=== PATIENT | female | born 1935 | race Caucasian/White ===

== ENCOUNTER → 2023-08-29 13:16 | Outpatient (REF) | payer MEDICARE, SELFPAY ==
[2023-08-29 16:52] LABS: ALT (SGPT) 21 U/L (0-35); AST (SGOT) 31 U/L (14-36); Albumin 3.6 g/dl (3.5-5.0); Alkaline Phosphatase 49 U/L (38-126); Blood Urea Nitrogen 28 mg/dl (7-17); Calcium 9.5 mg/dl (8.4-10.2); Carbon Dioxide 20 mmol/L (22-30); Chloride 110 mmol/L (98-107); Glucose 86 mg/dl (70-99); Potassium 3.9 mmol/L (3.5-5.1); Sodium 139 mmol/L (135-145); Total Bilirubin 1.2 mg/dl (0.2-1.3); eGFR 31.02
[2023-08-29 17:03] LABS: % Basophils 0.4 % (0-2); % Eosinophils 1.2 % (0-6); % Monocytes 12.1 % (1.7-9.3); % Neutrophils 52.3 % (42.2-75.2); Absolute Basophils 0.1 10^3/uL (0-0.2); Absolute Eosinophils 0.2 10^3/uL (0-0.7); Absolute Immature Granulocytes 0.1 10^3/uL (0-0.05); Absolute Lymphocytes 4.1 10^3/uL (1.2-3.4); Absolute Monocytes 1.5 10^3/uL (0.1-0.6); Absolute Neutrophils 6.6 10^3/uL (1.4-6.5); Hematocrit 41.1 % (37.0-47.0); Hemoglobin 13.2 g/dL (12.0-16.0); Mean Corp Hgb Conc. 32.1 g/dL (33.0-37.0); Mean Corpuscular Hgb 30.1 pg (27.0-31.0); Mean Corpuscular Volume 93.6 fL (81.0-99.0); Mean Platelet Volume 11.3 fL (7.4-10.4); Nucleated Red Blood Cells % 0 %; Platelet Count 220 10^3/uL (130-400); Red Blood Cell Count 4.39 10^6/uL (4.20-5.40); Red Cell Dist. Width 15.6 % (11.5-14.5); White Blood Cell Count 12.5 10^3/uL (4.8-10.8)
[2023-08-30 09:09] LABS: Glycohemoglobin (HgbA1c) 6.4 % (4.0-5.6)
== END ==
LOC: OLABPV 13:16
PROVIDERS: ATTENDING PHYSICIAN Nurse Practitioner Family; FAMILY PHYSICIAN Internal Medicine Geriatric Medicine
DX: I25.10 Atherosclerotic heart disease of native coronary artery without angina pectoris (principal); E78.2 Mixed hyperlipidemia; I10 Essential (primary) hypertension; I26.99 Other pulmonary embolism without acute cor pulmonale; Z95.5 Presence of coronary angioplasty implant and graft; I44.4 Left anterior fascicular block; Z79.899 Other long term (current) drug therapy
CPT/HCPCS: 36415; 80053; 83036; 85025

== ENCOUNTER 2023-11-06 23:06 | Emergency (ER) | payer MEDICARE, SELFPAY ==
[2023-11-06 23:13] VITALS: BP 164/90
[2023-11-07 01:38] VITALS: BMI 32.3
--- NOTE | 2023-11-07 02:04 | ED.GENMED ---
History of Present Illness
General
Chief Complaint: Skin Surface Trauma
Source: patient
Exam Limitations: none
Time Seen by Provider: 11/07/23 01:14
Nursing documentation reviewed up to this point in time: agreed with
History of Present Illness
History of Present Illness:
Patient is an 88-year-old female from [facility] presents to the ER with laceration to right lateral leg. She reports she was in the bathroom and accidentally cut her leg on a walker. She is on Eliquis. She denies any other injuries denies any
actual trauma fall. no head injury. She is unsure of her last tetanus.
Past History
Past History
ED Past Medical History: Asthma, CAD, HTN, Hypercholesterolemia, Hypothyroidism and Other (Factor V Leiden deficiency, PE, gout, chronic sinusitis, Vertigo, IBS)
ED Past Surgical History: Cardiac (Stent X 1), Gynecological (Ovarian cyst), Orthopedic (Back surgery) and Other (hemorrhoidectomy)
Social History
Tobacco: Non-smoker
Alcohol: Former
Drug: None
Personal:
Living: with family
Review of Systems
Review of Systems
Allergies reviewed?: Yes
All Other Systems: ROS reviewed and negative except as documented in HPI and ROS
Constitutional: Reports no symptoms
Musculoskeletal: Reports other (right leg laceration)
Skin: Reports other (laceration to right lower leg )
Neurological: Reports no symptoms
Psychiatric: Reports no symptoms
Phy Exam
General Physical Exam
General Presentation: well appearing
General age: appears stated age
General Skin: warm and dry
General Habitus: elderly
General Mental: alert
General Hydration: appears well hydrated
Neurological Exam
Neurological Exam: alert and oriented x3
Musculoskeletal Exam
Musculoskeletal Exam: other (rle with strong pulses + 3 cm partial thickness linear laceration to right lower leg )
Skin Exam
Skin Exam: normal color and warm/dry
Psychiatric Exam
Psychiatric Exam: normal mood/affect
Course
Orders/Labs/Results
Orders:
Orders
11/07/23 02:03
Tetanus/Diphth/Acelpertussis [Adacel] 0.5 ml IM .ONCE ONE
Vital Signs
Initial and Last Documented VS:
Initial Vital Signs
Temp Pulse Resp BP Pulse Ox
98 F 92 24 164/90 96
11/06/23 23:13 11/06/23 23:13 11/06/23 23:13 11/06/23 23:13 11/06/23 23:13
Last Documented Vital Signs
Temp Pulse Resp BP Pulse Ox
98 F 92 24 164/90 96
11/06/23 23:13 11/06/23 23:13 11/06/23 23:13 11/06/23 23:13 11/06/23 23:13
Procedures
Laceration Closure
Right Lower Leg:
Status of Wound: clean
Size of Wound in cm: 3
Description of Wound Edges: sharp
Preparation: cleaned with saline
Type of Closure: other (steri strips )
MDM/Problems Addressed
Differential Diagnosis Includes:
Not limited to leg laceration
MDM/Problems Addressed:
Patient is a 88-year-old female who cut her leg on a walker. Patient's wound was irrigated and additional steri strips applied to wound nonstick dressing with leo
Chronic conditions affecting care:
on Eliquis however no active bleeding here
*Pulse Oximetry
Patient hypoxic: no
*Critical Care Note
Total Time (30-74mins, 75-104mins- exclusive of procedures): Not Applicable
ED Attending Note
-
Portions of this chart may have been created with voice recognition software.� Occasional wrong word or��sound alike� substitutions may have occurred due to the inherent limitations of voice recognition software.
Discharge Plan
Departure
Patient Disposition: Home (Routine Discharge)
Date of Disposition: 11/07/23
Time of Disposition: 02:07
Patient with high blood pressure during this ER visit?: Yes
Condition: Fair
Covid-19: Not Applicable
Discharge Problem:
Laceration of leg
Instructions: Wound Care (DC), BLOOD PRESSURE
Prescriptions:
No Action
tramadol 50 MG tablet
50 mg PO Q6HPRN PRN (Reason: moderate or severe pain) Qty: 30 0RF
gabapentin 100 MG capsule
100 mg PO TID Qty: 90 0RF
acetaminophen [Tylenol Extra Strength] 500 MG tablet
1,000 mg PO TIDPRN PRN (Reason: mild pain) Qty: 100 0RF
rosuvastatin [Ezallor Sprinkle] 40 MG capsule, sprinkle
40 mg PO DAILY Qty: 90 0RF
cetirizine 10 MG tablet
10 mg PO DAILY Qty: 90 0RF
allopurinol 100 MG tablet
100 mg PO HS Qty: 90 0RF
levothyroxine 100 MCG tablet
100 mcg PO DAILY Qty: 90 0RF
fluticasone furoate-vilanterol [Breo Ellipta] 1 EACH blister with device
1 puff inhalation R DAILY Qty: 1 0RF
apixaban [Eliquis] 5 MG tablet
5 mg PO BID Qty: 180 0RF
ipratropium bromide 1 SPRAY spray,non-aerosol
2 spray intranasal BIDPRN PRN (Reason: ALLERGIES) Qty: 1 0RF
Referrals:
Lauri Chavez MD [Family Provider] -
Activity Restrictions/Additional Instructions:
Keep wound clean and dry for 24 hours after 24 hours you may lightly wash wound with soap and water and pat dry. Trim Steri-Strips as needed however they will fall off on their own. Please have your family doctor follow-up for wound check in the
next 2 days. Return if any signs of infection of increased pain swelling redness fever red streaking.
Interventions
Interventions:
*Risk Screen - Suicide Last Done: 11/06/23 23:13
*General Assessment Last Done: 11/07/23 01:38
*Neglect/Abuse Screening Last Done: 11/06/23 23:13
*ED COVID-19 Vaccine History Last Done: 11/07/23 01:38
ED-Skin Assessment Last Done: 11/07/23 01:38
Discharge Date and Time
Print Language: LAO
[2023-11-07] MEDS: ADACEL 0.5 ML IM (02:58)
[2023-11-07 03:15] VITALS: BP 152/88
== END 2023-11-07 03:18 | disposition home or self-care (01) ==
LOC: EMR 23:06
PROVIDERS: EMERGENCY PHYSICIAN Emergency Medicine; FAMILY PHYSICIAN Internal Medicine Geriatric Medicine
DX: S81.811A Laceration without foreign body, right lower leg, initial encounter (principal); W45.8XXA Other foreign body or object entering through skin, initial encounter; Z23 Encounter for immunization; J45.909 Unspecified asthma, uncomplicated; I25.10 Atherosclerotic heart disease of native coronary artery without angina pectoris; I10 Essential (primary) hypertension; E78.00 Pure hypercholesterolemia, unspecified; E03.9 Hypothyroidism, unspecified; D68.51 Activated protein C resistance; K58.9 Irritable bowel syndrome, unspecified; Z79.01 Long term (current) use of anticoagulants; Z95.5 Presence of coronary angioplasty implant and graft
CPT/HCPCS: 99282; 90471; 90715

== ENCOUNTER 2023-11-29 09:39 | Inpatient (IN) | payer MEDICARE, SELFPAY ==
[2023-11-29] VITALS (11 sets, daily range): BP systolic 109–186; BP diastolic 49–173; PULSE 68; O2SAT 94; BMI 32.9
[2023-11-29 02:56] LABS: % Basophils 0.4 % (0-2); % Eosinophils 0.9 % (0-6); % Immature Granulocytes 1.2 % (0-0.5); % Lymphocytes 24.1 % (20.5-51.1); % Monocytes 12.1 % (1.7-9.3); % Neutrophils 61.3 % (42.2-75.2); Absolute Basophils 0.1 10^3/uL (0-0.2); Absolute Eosinophils 0.1 10^3/uL (0-0.7); Absolute Immature Granulocytes 0.1 10^3/uL (0-0.05); Absolute Lymphocytes 2.9 10^3/uL (1.2-3.4); Absolute Monocytes 1.5 10^3/uL (0.1-0.6); Absolute Neutrophils 7.4 10^3/uL (1.4-6.5); Hematocrit 36.8 % (37.0-47.0); Hemoglobin 12.2 g/dL (12.0-16.0); Mean Corp Hgb Conc. 33.2 g/dL (33.0-37.0); Mean Corpuscular Hgb 30.7 pg (27.0-31.0); Mean Corpuscular Volume 92.5 fL (81.0-99.0); Mean Platelet Volume 10.3 fL (7.4-10.4); Nucleated Red Blood Cells % 0 %; Platelet Count 198 10^3/uL (130-400); Red Blood Cell Count 3.98 10^6/uL (4.20-5.40); White Blood Cell Count 12.1 10^3/uL (4.8-10.8)
[2023-11-29 03:16] LABS: INR 1.05; PT 13.7 Sec (11.4-14.6)
[2023-11-29 03:17] LABS: APTT 23.2 Sec (23.4-35.0)
[2023-11-29 03:20] LABS: ALT (SGPT) 23 U/L (0-35); AST (SGOT) 25 U/L (14-36); Albumin 3.5 g/dl (3.5-5.0); Alkaline Phosphatase 55 U/L (38-126); Blood Urea Nitrogen 49 mg/dl (7-17); Carbon Dioxide 26 mmol/L (22-30); Chloride 109 mmol/L (98-107); Estimated Creatinine Clearance 22 ml/min; Glucose 107 mg/dl (70-99); Potassium 4.1 mmol/L (3.5-5.1); Sodium 142 mmol/L (135-145); Total Bilirubin 0.7 mg/dl (0.2-1.3); Total Protein 5.7 g/dl (6.3-8.2); eGFR 25.24
[2023-11-29 03:23] LABS: NT-proBNP 643 pg/ml; Troponin I 0.035 ng/ml
--- NOTE | 2023-11-29 03:46 | ED.GENMED ---
History of Present Illness
General
Chief Complaint: Swelling
Source: patient and ambulance crew
Exam Limitations: none
Nursing documentation reviewed up to this point in time: agreed with
History of Present Illness
History of Present Illness:
Pleasant 88-year-old female presents with increased leg swelling and pain. Patient uses a cane to ambulate. She states that this evening she banged her left connor and developed some bruising and swelling. She went to bed and upon awakening to use
the restroom, she felt increased pain so she called 911. Patient denies chest pain or shortness of breath. Patient is on Eliquis for factor V Leiden
Past History
Past History
ED Past Medical History: Asthma, CAD, HTN, Hypercholesterolemia, Hypothyroidism and Other (Factor V Leiden deficiency, PE, gout, chronic sinusitis, Vertigo, IBS)
ED Past Surgical History: Cardiac (Stent X 1), Gynecological (Ovarian cyst), Orthopedic (Back surgery) and Other (hemorrhoidectomy)
Social History
Tobacco: Non-smoker
Alcohol: Former
Drug: None
Personal:
Living: with family
Review of Systems
Review of Systems
Allergies reviewed?: Yes
Other source history: ambulance crew
All Other Systems: ROS reviewed and negative except as documented in HPI and ROS
Hematologic/Lymphatic: Reports bruising
Psychiatric: Reports anxiety
Phy Exam
General Physical Exam
General Presentation: well appearing and mild distress
General age: appears stated age
General Skin: warm and dry
General Habitus: normal
General Mental: alert and anxious
General Hydration: appears well hydrated
ENT Exam
ENT Exam: EOMI, pharynx normal, neck supple and normocephalic
Eye Exam
Eye Exam: PERRL, cornea clear and conjunctiva normal
Cardiovascular Exam
Cardiovascular Exam: regular rate/rhythm, no edema, no murmur and normal peripheral pulses
Pulmonary Exam
Pulmonary Exam: lungs clear, no respiratory distress, no rales, no crackles, no rhonchi, no stridor, no wheezing and no cough
Gastrointestinal Exam
Gastrointestinal Exam: normal bowel sounds, non tender, soft, no organomegaly, no pulsatile mass and non distended
Neurological Exam
Neurological Exam: alert, oriented x3, no motor deficits and speech normal
Musculoskeletal Exam
Musculoskeletal Exam: full ROM and no edema
Skin Exam
Skin Exam: normal color, warm/dry, no rash and no petechia
Psychiatric Exam
Psychiatric Exam: normal mood/affect
Scores
Heart Failure Risk
Heart Failure Risk Score: Yes
History of Stroke or TIA: No
History of intubation for respiratory distress: No
Heart rate on ED arrival >/= 110: No
SaO2 <90% on arrival on room air: No
HR >/=110 during 3min walk test (or too ill to perform test): No
ECG has acute ischemic changes: No
Urea >/=12mmol/L (BUN 33.6mg/dL): Yes
Serum CO2>/=35mmol/L: No
Troponin I or T elevated to MA Level (0.4mg/dL): No
NT-proBNP >/=5,000ng/L (5,000pg/ml): No
HF Risk Score: 1
Admission Status: MEDIUM RISK 5.1% Consider observation or discharge to home with homecare & f/u visit to PCP/S[employer] [facility], or SNF for treatment
Course
Orders/Labs/Results
Orders:
Orders
11/29/23 02:38
US Periph Venous LOWER Ext Nash Urgent
Comment:
Reason For Exam: swelling
11/29/23 02:48
Complete Blood Count/With Diff Urgent
Comprehensive Metabolic Panel Urgent
NT-proBNP Urgent
PTT Urgent
Prothrombin Time Urgent
Troponin I Urgent
11/29/23 04:22
CR Chest - 2 Views Urgent
Comment:
Reason For Exam: swelling
11/29/23 04:46
Furosemide [Lasix] 40 mg IV NOW STA
Abnormal Lab Results
11/29/23
02:48
WBC 12.1 H 10^3/uL
(4.8-10.8)
RBC 3.98 L 10^6/uL
(4.20-5.40)
Hct 36.8 L %
(37.0-47.0)
RDW 15.0 H %
(11.5-14.5)
Abs Immat Gran (auto) 0.1 H 10^3/uL
(0-0.05)
Absolute Neuts (auto) 7.4 H 10^3/uL
(1.4-6.5)
Absolute Monos (auto) 1.5 H 10^3/uL
(0.1-0.6)
Immature Gran % 1.2 H %
(0-0.5)
Monocytes % 12.1 H %
(1.7-9.3)
APTT 23.2 L Sec
(23.4-35.0)
Chloride 109 H mmol/L
(98-107)
BUN 49 H mg/dl
(7-17)
Creatinine 1.9 H mg/dL
(0.6-1.0)
Glucose 107 H mg/dl
(70-99)
Troponin I 0.035 H* ng/ml
Total Protein 5.7 L g/dl
(6.3-8.2)
11/29/23 02:48
11/29/23 02:48
Vital Signs
Initial and Last Documented VS:
Initial Vital Signs
Temp Pulse Resp BP Pulse Ox
97.9 F 86 18 165/81 97
11/29/23 02:31 11/29/23 02:31 11/29/23 02:31 11/29/23 02:31 11/29/23 02:31
Last Documented Vital Signs
Temp Pulse Resp BP Pulse Ox
97.9 F 67 16 146/63 96
11/29/23 02:31 11/29/23 04:30 11/29/23 04:30 11/29/23 04:00 11/29/23 04:30
*Critical Care Note
Total Time (30-74mins, 75-104mins- exclusive of procedures): Not Applicable
Update Note
Update Note:
Ultrasound of the legs is negative for DVT
ED Attending Note
-
Portions of this chart may have been created with voice recognition software.� Occasional wrong word or��sound alike� substitutions may have occurred due to the inherent limitations of voice recognition software.
Discharge Plan
Departure
Patient Disposition: Admit
Date of Disposition: 11/29/23
Time of Disposition: 05:08
Admit to: Telemetry
Presentation/result/management discussed w/ accepting MD/DO: Hospitalist
Condition: Fair
Discharge Problem:
Factor V Leiden, Fluid overload, Leg edema, Weakness
Prescriptions:
No Action
tramadol 50 MG tablet
50 mg PO Q6HPRN PRN (Reason: moderate or severe pain) Qty: 30 0RF
gabapentin 100 MG capsule
100 mg PO TID Qty: 90 0RF
acetaminophen [Tylenol Extra Strength] 500 MG tablet
1,000 mg PO TIDPRN PRN (Reason: mild pain) Qty: 100 0RF
rosuvastatin [Ezallor Sprinkle] 40 MG capsule, sprinkle
40 mg PO DAILY Qty: 90 0RF
cetirizine 10 MG tablet
10 mg PO DAILY Qty: 90 0RF
allopurinol 100 MG tablet
100 mg PO HS Qty: 90 0RF
levothyroxine 100 MCG tablet
100 mcg PO DAILY Qty: 90 0RF
fluticasone furoate-vilanterol [Breo Ellipta] 1 EACH blister with device
1 puff inhalation R DAILY Qty: 1 0RF
apixaban [Eliquis] 5 MG tablet
5 mg PO BID Qty: 180 0RF
ipratropium bromide 1 SPRAY spray,non-aerosol
2 spray intranasal BIDPRN PRN (Reason: ALLERGIES) Qty: 1 0RF
Referrals:
Lauri Chavez MD [Family Provider] -
Interventions
Interventions:
*Risk Screen - Suicide Last Done: 11/29/23 02:31
*General Assessment Last Done: 11/29/23 02:31
*Neglect/Abuse Screening Last Done: 11/29/23 02:31
*ED COVID-19 Vaccine History Last Done: 11/29/23 02:31
ED- Cardiac Assessment Last Done: 11/29/23 02:36
ED- Pulmonary Assessment Last Done: 11/29/23 02:36
ED-Skin Assessment Last Done: 11/29/23 02:36
Discharge Date and Time
Print Language: MALAY
[2023-11-29] MEDS: LASIX 40 MG IV ×2 (04:49→08:26)
--- NOTE | 2023-11-29 05:15 | HPS.HSE ---
Family Physician
-
Family Physician: Lauri Chavez
Chief Complaint
-
bilateral lower extremity swelling
History of Present Illness
Patient is an 88-year-old female with past medical history significant for hypertension, CATRACHO not on CPAP, PE on anticoagulation, factor V Leiden, lumbar degenerative disc disease status post L3-S1 interbody fusion, and hypothyroidism who presents to
the Emergency Department with worsening bilateral lower extremity swelling.
Patient reported that she had developed swelling initially in the right lower extremity starting about 4 weeks ago. This initially occurred in the setting of injury/bruising to that extremity. That remained persistent and slightly worsened over
the last month. In the last 1 week she started developing swelling in the right lower extremity. Today the patient reported that she was walking around the house when she injured left connor. When she sweats of the mirror she noticed significant
swelling of her feet and ankles. She also noticed the bruising and she called EMS.
Patient has of denies any recent orthopnea PND or shortness of breath. She denies dyspnea exertion. She denies having any chest pain. She been compliant with her Eliquis. Patient reports that antihypertensives were changed recently due to
worsening renal function.
In ED she was hemodynamically stable. Xray shows increased interstitial markings. Trop 0.03. BNP 643. CBC is unremarkable. Chemistries similar to prior. LE U/S negative for DVT.
Medical History
Past Medical History
Past Medical History: Reports HTN, Hypercholesterolemia and Hypothyroidism
Additional Past Medical History:
CKD
PE
Factor V leiden
Past Surgical History: Reports Orthopedic
Social History
Tobacco: Non-smoker
Alcohol: None
Drug: None
Personal: Single
Living: Assisted Living
Employment: Retired
Family History
Family History: Not pertinent
Allergies / Home Medications
Allergies reflects when Allergies were last updated in [employer].
Home Medications with original date entered in [employer]
Allergy/Medication List:
Allergies
Allergy/AdvReac Type Severity Reaction Status Date / Time
codeine Allergy Unknown Unknown Verified 11/29/23 02:31
alcohol Allergy hx of Verified 11/29/23 02:31
addiction
Sulfa (Sulfonamide Allergy Vomiting Verified 11/29/23 02:31
Antibiotics)
environmental Allergy sneezing, Uncoded 11/29/23 02:31
itching,
nasal
swelling,
watery
eyes,
headaache
narcotics Allergy Pharmacy Uncoded 11/29/23 02:31
to Review
Home Medications
allopurinol 100 mg tablet 100 mg PO HS Gout #90 tabs 07/15/20
apixaban 5 mg tablet (Eliquis) 5 mg PO BID #180 tabs 07/15/20
cetirizine 10 mg tablet 10 mg PO DAILY Allergies #90 tabs 07/15/20
fluticasone furoate 200 mcg-vilanterol 25 mcg/dose inhalation powder (Breo Ellipta) 1 puff inhalation R DAILY Lung/breathing issues ##1 07/15/20
gabapentin 100 mg capsule 100 mg PO TID #90 caps 07/15/20
levothyroxine 100 mcg tablet 100 mcg PO DAILY Thyroid #90 tabs 07/15/20
rosuvastatin 40 mg sprinkle capsule (Ezallor Sprinkle) 40 mg PO DAILY ##90 07/15/20
tramadol 50 mg tablet 50 mg PO Q6HPRN PRN moderate or severe pain #30 tabs 07/15/20
Nortriptyline 25 mg po daiily
Pantoprazole 40 mg po daily
Topiramate 50mg po daily
Valsartan 40mg po daily
Review of Systems
-
Constitutional: Reports No Symptoms
EENT: Reports No Symptoms
Respiratory: Reports No Symptoms
Cardiac: Reports No Symptoms
Abdomen/GI: Reports No Symptoms
: Reports No Symptoms
Musculoskeletal: Reports Edema
Skin: Reports Rash
Neurological: Reports No Symptoms
Endocrine: Reports No Symptoms
Hematologic/Lymphatic: Reports No Symptoms
Psych: Reports No Symptoms
Physical Exam
Vital Signs
Vital Signs
Temp Pulse Resp BP Pulse Ox
97.9 F 67 16 146/63 96
11/29/23 02:31 11/29/23 04:30 11/29/23 04:30 11/29/23 04:00 11/29/23 04:30
Physical Exam
General: No Apparent Distress
HEENT: NormoCephalic, Anicteric, Moist mucous membranes and Atraumatic
Respiratory: Clear
Cardiac: S1/S2, Regular Rhythm and Peripheral Edema
Breast: Deferred by me
GI: Soft, Non Tender, Non Distended and Normal Bowel Sounds
Rectal: Deferred by Provider
Genito-urinary: Deferred by me
Musculoskeletal: No Clubbing, No Cyanosis, Edema, Left Lower Extremity and Edema, Right Lower Extremity
Skin: Lesions (Left leg hematoma 5 cm in diameter)
Neuro: AO x 3
Hematologic/Lymphatic: No Lymphadenopathy
Psych: Calm
Laboratory Results
-
11/29/23 02:48
11/29/23 02:48
Laboratory Results
PT 13.7 Sec (11.4-14.6) 11/29/23 02:48
INR 1.05 11/29/23 02:48
APTT 23.2 Sec (23.4-35.0) L 11/29/23 02:48
Total Bilirubin 0.7 mg/dl (0.2-1.3) 11/29/23 02:48
AST 25 U/L (14-36) 11/29/23 02:48
ALT 23 U/L (0-35) 11/29/23 02:48
Alkaline Phosphatase 55 U/L (38-126) 11/29/23 02:48
Troponin I 0.035 ng/ml H* 11/29/23 02:48
Data Reviewed
-
Diagnostic Radiology: Image Personally Visualized and interpreted
Ultrasound: Report Reviewed by me
Medical Tests (Nuc Med, Echo, EKG etc): Image Personally Visualized and interpreted
Lab Data: Labs Reviewed by me
Old Records: Reviewed
Impression/Plan
-
IMPRESSION:
PLAN:
1. Peripheral edema - Patient with subacute developement of bilateral lower extremity edema over the last 1.5 months. She had no respiratory symptoms or cardiac symptoms. Edema associated with injury to lower extremities and decreased mobility.
Denies prior CAD. No known CHF w/norml EF, wall motion and no diastolic dysfunction in March 2023 echo. BNP is equivocal (643 and patient obese). Troponin is abnormal today at 0.3. No ischemia on ECG. Her renal function is stable. No known
liver disease and no DVT (on eliquis). Suspect vascular insufficiency/lymphedema as etiology of swelling and less likely new onset CHF. Will admit to eval for CHF, eval troponin bump and rule out other etiology such as nephropathy, liver disease.
- admit to telemetry
- check echo, tsh, u/a and urine protein cr, check lft, check RUQ to r/o cirrhosis
- patient not on amlodipine
- gentle diuresis with lasix 40mg iv daily for now given CKD, follow daily weights and i/os
- keep lower extremities elevated
2. Abnormal Trop - 0.03. No chest discomfort, pain or ischemia on ECG. No prior CAD. Possibly secondary to heart failure
- continue apixaban
- trend troponin for now
- echo as above
- cardiology consultation if rising troponin
3. HTN
- valsartan 40 mg po daily
[2023-11-29] MEDS: SYNTHROID 100 MCG PO (06:24)
[2023-11-29] MEDS: ASPIR LOW (ENTERIC COATED) 162 MG PO (06:24)
[2023-11-29] MEDS: PROTONIX 40 MG PO (08:24)
[2023-11-29] MEDS: ZYRTEC 10 MG PO (08:24)
[2023-11-29] MEDS: DIOVAN 40 MG PO (08:24)
[2023-11-29] MEDS: ELIQUIS 5 MG PO (08:26)
--- NOTE | 2023-11-29 08:51 | PTCARENOTE ---
pt resting comfortably in stretcher, refused bed. accepted AM medications. CB in reach. During admission questions pt reports she finished her quarantine for COVMonday
--- NOTE | 2023-11-29 09:41 | W.PN.HOSP.TC ---
Today's Communication/Plan
-
See plan
Assessment / Plan
Assessment / Plan
Impression:
Left lower extremity superficial hematoma with cellulitis
Non-NV troponin elevation
Conditions prior to admission:*
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
Obstructive sleep apnea not on CPAP.
Essential hypertension
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
CAD.
Hypothyroidism
Plan:
Presentation with left lower extremity hematoma and cellulitis.
Patient reports possibly bumping her leg against furniture, although could not recall details.
Denies any fever or chills and has no systemic symptoms.
Noted with mild elevated white count.
Exam with left calf erythema and induration midway with full range of motion in the ankle
No fluctuance
Lower extremity Doppler negative for DVT.
Initiate antibiotics cefazolin and monitor for improvement
Left lower extremity elevation
Bilateral peripheral edema, chronic likely with component of lymphedema
No clinical evidence of decompensated CHF
Patient with prior history of CAD and stent at least 15 years ago
Most recent echocardiogram March 2023 with preserved biventricular function and no significant valvular abnormalities.
Noted mildly elevated pro CHF BNP at equivocal level
Chest x-ray with clear lung brady.
Not on diuretics at home.
Given stable respiratory status, hold further Lasix. Update echocardiogram.
Non-NV troponin elevation in the patient with chronic kidney disease.
Does not report chest pain upon presentation.
ECG with no ischemic
Echocardiogram pending as above
Trend troponin
Essential hypertension.
Continue amlodipine
Chronic kidney disease with baseline creatinine 1.7�2. Suspect CKD stage IIIa�B.
Most recent renal ultrasound suggestive of medical renal disease
Urinalysis pending for sediment.
Monitor renal function
Will need outpatient nephrology follow-up
Factor V Leiden with prior history of preoperative DVT/PE.
Continue anticoagulation/Eliquis at prophylactic dose 2.5 mg twice daily with caution for worsening of left lower extremity hematoma
Hypothyroidism on replacement
Updated TSH pending
History of asthma/COPD.
Obstructive sleep apnea not compliant with CPAP for over 5 years.
Patient is on steroid maintenance prednisone 10 mg daily and Breo Ellipta
Suspect ambulatory dysfunction, multifactorial.
Physical therapy evaluation/discharge planning
Anticipated Discharge: 24 - 48 hours
Subjective/Interval History
-
Date of Service: November 29, 2023
Objective Data
-
Labs:
Laboratory Results
11/29/23 11/29/23
02:48 06:00
WBC 12.1 H
Hgb 12.2
Hct 36.8 L
Plt Count 198
PT 13.7
INR 1.05
APTT 23.2 L
Sodium 142
Potassium 4.1
Chloride 109 H
Carbon Dioxide 26
BUN 49 H
Creatinine 1.9 H
Glucose 107 H
Calcium 10.0
Total Bilirubin 0.7 Pending
AST 25 Pending
ALT 23 Pending
Alkaline Phosphatase 55 Pending
Vital Signs:
Vital Signs
Temp Pulse Resp BP Pulse Ox
97.9 F 71 16 139/61 97
11/29/23 02:31 11/29/23 08:53 11/29/23 08:53 11/29/23 08:24 11/29/23 08:53
Physical Exam
-
General: Well Developed and No Apparent Distress
HEENT: Normocephalic, Atraumatic and Moist Mucous Membranes
Respiratory: Clear to Auscultation
Cardiac: Regular Rhythm and S1/S2; Negative Murmur, Rub or Gallop
GI: Soft, Nontender, Nondistended and Normal Bowel Sounds; Negative Organomegaly
Rectal: Deferred by Provider
Musculoskeletal: No Clubbing, No Cyanosis and Other (Bilateral +1 pitting edema. Left lower extremity calf erythema with induration with no fluctuance. Full range of motion at the ankle)
Skin: Negative Rash
Neuro: Nonfocal/Grossly Intact
[2023-11-29 10:55] LABS: Urine Albumin Negative (Neg - Trace); Urine Bilirubin Negative (Negative); Urine Character Clear (Clear); Urine Color Straw; Urine Glucose Negative (Negative); Urine Ketone Negative (Negative); Urine Leukocyte Negative (Negative); Urine Nitrite Negative (Negative); Urine Occult Blood 2+ (Negative); Urine Urobilinogen Negative (Neg - 1+)
[2023-11-29 11:00] LABS: ALT (SGPT) 22 U/L (0-35); AST (SGOT) 22 U/L (14-36); Albumin 3.6 g/dl (3.5-5.0); Alkaline Phosphatase 59 U/L (38-126); Direct Bilirubin 0.2 mg/dl (0.0-0.4); Total Protein 5.8 g/dl (6.3-8.2)
[2023-11-29 11:15] LABS: Troponin I 0.039 ng/ml
[2023-11-29] MEDS: ANCEF 5 IV ×2 (11:21→17:50)
[2023-11-29] MEDS: DELTASONE PO (11:22)
[2023-11-29 11:30] LABS: TSH Reflex To Free T4 8.37 uIU/ml (0.47-4.68)
[2023-11-29 11:36] LABS: Urine Red Blood Cell 0-2 /HPF (0-2); Urine White Cell None Seen /HPF (0-5)
[2023-11-29 12:00] LABS: Free T4 1.55 ng/dl (0.78-2.19)
[2023-11-29 13:38] LABS: Urine Protein 14 mg/dl
[2023-11-29] MEDS: ELIQUIS 2.5 MG PO (21:29)
[2023-11-30] MEDS: FLUSH (NSS) 2 FLUSH IV (02:08)
[2023-11-30] MEDS: ANCEF 5 IV ×3 (02:08→21:57)
[2023-11-30 03:00] VITALS: BP 143/67
[2023-11-30] MEDS: SYNTHROID 100 MCG PO (05:42)
[2023-11-30 06:00] VITALS: BMI 31.1
[2023-11-30 07:30] VITALS: BP 125/55
[2023-11-30 07:42] VITALS: BMI 31.1
[2023-11-30 08:17] LABS: % Basophils 0.4 % (0-2); % Eosinophils 1.6 % (0-6); % Immature Granulocytes 1.3 % (0-0.5); % Lymphocytes 22.3 % (20.5-51.1); % Monocytes 12.7 % (1.7-9.3); % Neutrophils 61.7 % (42.2-75.2); Absolute Eosinophils 0.2 10^3/uL (0-0.7); Absolute Immature Granulocytes 0.1 10^3/uL (0-0.05); Absolute Lymphocytes 2.5 10^3/uL (1.2-3.4); Absolute Monocytes 1.4 10^3/uL (0.1-0.6); Absolute Neutrophils 6.9 10^3/uL (1.4-6.5); Hematocrit 37.1 % (37.0-47.0); Hemoglobin 12.2 g/dL (12.0-16.0); Mean Corp Hgb Conc. 32.9 g/dL (33.0-37.0); Mean Corpuscular Hgb 30.6 pg (27.0-31.0); Nucleated Red Blood Cells % 0 %; Platelet Count 196 10^3/uL (130-400); Red Blood Cell Count 3.99 10^6/uL (4.20-5.40); Red Cell Dist. Width 15.3 % (11.5-14.5); White Blood Cell Count 11.1 10^3/uL (4.8-10.8)
[2023-11-30] MEDS: CRESTOR 40 MG PO (08:24)
[2023-11-30] MEDS: ZYRTEC 10 MG PO (08:24)
[2023-11-30] MEDS: ELIQUIS 2.5 MG PO ×2 (08:24→19:39)
[2023-11-30] MEDS: NORVASC 2.5 MG PO (08:24)
[2023-11-30] MEDS: DELTASONE 10 MG PO (08:24)
[2023-11-30 08:42] LABS: Blood Urea Nitrogen 44 mg/dl (7-17); Calcium 9.1 mg/dl (8.4-10.2); Carbon Dioxide 27 mmol/L (22-30); Chloride 102 mmol/L (98-107); Estimated Creatinine Clearance 24 ml/min; Glucose 94 mg/dl (70-99); Potassium 3.2 mmol/L (3.5-5.1); Sodium 143 mmol/L (135-145); eGFR 28.84
[2023-11-30 11:06] VITALS: BP 127/54
--- NOTE | 2023-11-30 14:13 | CM ---
Patient seen at bedside. Patient lives in apartment at [facility]. Patient has aides in am and plan is for SNF at PT/OT recommendation. Patient states that her PCP is Dr. Chavez and she uses the [facility] because they deliver. Patient has a
walker and a scooter. Patient in agreement for SNF placement. Patient requested referral to [facility]. Patient aware first available bed is on monday. CM will update physician. CM will continue to follow for discharge planning needs.
Plan; SNF; [facility] when medically appropriate and pending bed availability
--- NOTE | 2023-11-30 14:31 | PN.CDI ---
CDI
- -
CDI:
Physician Documentation Request
Admit Date: 11/29/23 09:39
Dear Doctor Sommer,
Patient admitted for hematoma and cellulitis.
11/28 Hospitalist PN: 'Non-NV troponin elevation in the patient with chronic kidney disease. Does not report chest pain upon presentation.'
Please clarify the following regarding the documented troponin elevation:
Non-ischemic myocardial injury
Lab abnormality
Other
Use of terms such as suspected, likely, concern for, or probable (associated with a specific diagnosis that is being evaluated, monitored, or treated as if it exists) are acceptable and can be coded in the inpatient setting, when documented at the
time of discharge.
Thank you,
Yocasta Polanco RN, BSN
CDI Specialist
Available via [place] text
Please use your independent medical judgment in providing your response.
--- NOTE | 2023-11-30 14:37 | W.PN.HOSP.TC ---
Today's Communication/Plan
-
Continue antibiotics for another 24 to 48 hours.
Monitor right lower extremity hematoma while on Eliquis.
PT evaluation
Patient agrees for half-way facility rehab pending bed availability.
Assessment / Plan
Assessment / Plan
Impression:
Left lower extremity superficial hematoma with cellulitis
Non-[place] troponin elevation
Hypokalemia
Conditions prior to admission:*
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
Obstructive sleep apnea not on CPAP.
Essential hypertension
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
CAD.
Hypothyroidism
Plan:
Presentation with left lower extremity hematoma and cellulitis.
Patient reports possibly bumping her leg against furniture, although could not recall details.
Denies any fever or chills and has no systemic symptoms.
Noted with mild elevated white count.
Exam with left calf erythema and induration midway with full range of motion in the ankle
No fluctuance
Lower extremity Doppler negative for DVT.
Initiate antibiotics cefazolin and monitor for improvement
Left lower extremity elevation
Bilateral peripheral edema, chronic likely with component of lymphedema
No clinical evidence of decompensated CHF
Patient with prior history of CAD and stent at least 15 years ago
Most recent echocardiogram March 2023 with preserved biventricular function and no significant valvular abnormalities.
Noted mildly elevated pro CHF BNP at equivocal level
Repeated echocardiogram with preserved biventricular function no significant valvular abnormalities
Chest x-ray with clear lung brady.
Not on diuretics at home.
Given stable respiratory status, hold further Lasix. .
Non-[place] troponin elevation in the patient with chronic kidney disease.
Does not report chest pain upon presentation.
ECG with no ischemic
Echocardiogram with preserved ventricular function and no regional wall motion abnormalities.
Essential hypertension.
Continue amlodipine
Chronic kidney disease with baseline creatinine 1.7�2. Suspect CKD stage IIIa�B.
Most recent renal ultrasound suggestive of medical renal disease
Urinalysis pending for sediment.
Monitor renal function
Will need outpatient nephrology follow-up
Factor V Leiden with prior history of preoperative DVT/PE.
Continue anticoagulation/Eliquis at prophylactic dose 2.5 mg twice daily with caution for worsening of left lower extremity hematoma
Hypothyroidism on replacement
Updated TSH pending
History of asthma/COPD.
Obstructive sleep apnea not compliant with CPAP for over 5 years.
Patient is on steroid maintenance prednisone 10 mg daily and Breo Ellipta
Suspect ambulatory dysfunction, multifactorial.
Physical therapy evaluation/discharge planning
Anticipated Discharge: > 48 hours
Subjective/Interval History
-
Date of Service: November 30, 2023
Objective Data
-
Labs:
Laboratory Results
11/30/23
07:15
WBC 11.1 H
Hgb 12.2
Hct 37.1
Plt Count 196
Sodium 143
Potassium 3.2 L
Chloride 102
Carbon Dioxide 27
BUN 44 H
Creatinine 1.7 H
Glucose 94
Calcium 9.1
Vital Signs:
Vital Signs
Temp Pulse Resp BP Pulse Ox
97.8 F 70 17 127/54 95
11/30/23 11:06 11/30/23 11:06 11/30/23 11:06 11/30/23 11:06 11/30/23 11:06
I&O
11/29/23 11/30/23 12/01/23
06:59 06:59 06:59
Intake Total 480 / 480 480 / 480
Output Total 200 / 200
Balance 480 / 480 280 / 280
Physical Exam
-
General: Well Developed and No Apparent Distress
HEENT: Normocephalic, Atraumatic and Moist Mucous Membranes
Respiratory: Clear to Auscultation
Cardiac: Regular Rhythm and S1/S2; Negative Murmur, Rub or Gallop
GI: Soft, Nontender, Nondistended and Normal Bowel Sounds; Negative Organomegaly
Rectal: Deferred by Provider
Musculoskeletal: No Clubbing, No Cyanosis and Other (Bilateral +1 pitting edema. Left lower extremity calf erythema with induration with no fluctuance. Full range of motion at the ankle)
Skin: Negative Rash
Neuro: Nonfocal/Grossly Intact
[2023-11-30] MEDS: KCL 40 MEQ PO (14:53)
[2023-11-30 15:11] VITALS: BP 132/57
[2023-11-30] MEDS: SYMBICORT 160/4.5 MCG INHALER 2 PUFF INH (15:22)
[2023-11-30 19:30] VITALS: BP 109/63
[2023-12-01] VITALS (9 sets, daily range): BP systolic 110–154; BP diastolic 49–80; PULSE 68; O2SAT 94; BMI 31.2
[2023-12-01] MEDS: SYNTHROID 100 MCG PO (05:23)
[2023-12-01] MEDS: ELIQUIS 2.5 MG PO ×2 (08:25→20:48)
[2023-12-01] MEDS: DELTASONE 10 MG PO (08:27)
[2023-12-01] MEDS: NORVASC 2.5 MG PO (08:27)
[2023-12-01] MEDS: ZYRTEC 10 MG PO (08:27)
[2023-12-01] MEDS: CRESTOR 10 MG PO (08:27)
--- NOTE | 2023-12-01 10:34 | CM ---
Addendum entered by Julia Covarrubias 12/01/23 10:54:
transport forms placed on chart.
Original Note:
Patient seen at bedside. Plan for transfer to [facility] tomorrow. IMM completed and signed form placed on chart. Please call report to [phone]. CM will need to call truck driver supervisor at [facility] [phone] to confirm timing for bed. Patient
stated that she [place]. CM will continue to follow for discharge planning needs.
Plan; PR transfer tentatively tomorrow pending physician assessment
[2023-12-01] MEDS: ANCEF 5 IV (11:45)
[2023-12-01] MEDS: SYMBICORT 160/4.5 MCG INHALER 2 PUFF INH (13:24)
[2023-12-01 14:29] LABS: % Basophils 0.3 % (0-2); % Eosinophils 0.2 % (0-6); % Immature Granulocytes 0.9 % (0-0.5); % Lymphocytes 7.1 % (20.5-51.1); % Monocytes 6.5 % (1.7-9.3); Absolute Immature Granulocytes 0.1 10^3/uL (0-0.05); Absolute Lymphocytes 0.8 10^3/uL (1.2-3.4); Absolute Monocytes 0.7 10^3/uL (0.1-0.6); Absolute Neutrophils 9.1 10^3/uL (1.4-6.5); Hematocrit 40.2 % (37.0-47.0); Mean Corp Hgb Conc. 32.3 g/dL (33.0-37.0); Mean Corpuscular Volume 95.9 fL (81.0-99.0); Mean Platelet Volume 10.3 fL (7.4-10.4); Nucleated Red Blood Cells % 0 %; Platelet Count 213 10^3/uL (130-400); Red Blood Cell Count 4.19 10^6/uL (4.20-5.40); White Blood Cell Count 10.7 10^3/uL (4.8-10.8)
[2023-12-01 14:51] LABS: Blood Urea Nitrogen 40 mg/dl (7-17); Calcium 9.9 mg/dl (8.4-10.2); Carbon Dioxide 25 mmol/L (22-30); Chloride 102 mmol/L (98-107); Estimated Creatinine Clearance 29 ml/min; Glucose 170 mg/dl (70-99); Potassium 4.5 mmol/L (3.5-5.1); Sodium 138 mmol/L (135-145); eGFR 36.41
--- NOTE | 2023-12-01 15:42 | W.PN.HOSP.TC ---
Today's Communication/Plan
-
Discontinue antibiotics
Continue physical therapy
Medically cleared for placement to group home facility for rehab with bed availability on 12/01.
Assessment / Plan
Assessment / Plan
Impression:
Left lower extremity superficial hematoma with cellulitis
Non-ND troponin elevation
Hypokalemia
Conditions prior to admission:*
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
Obstructive sleep apnea not on CPAP.
Essential hypertension
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
CAD.
Hypothyroidism
Plan:
Presentation with left lower extremity hematoma and cellulitis.
Patient reports possibly bumping her leg against furniture, although could not recall details.
Denies any fever or chills and has no systemic symptoms.
Noted with mild elevated white count.
Exam with left calf erythema and induration midway with full range of motion in the ankle
No fluctuance
Lower extremity Doppler negative for DVT.
Cellulitis improved with now hematoma reduced in size.
Stop antibiotics
Bilateral peripheral edema, chronic likely with component of lymphedema
No clinical evidence of decompensated CHF
Patient with prior history of CAD and stent at least 15 years ago
Most recent echocardiogram March 2023 with preserved biventricular function and no significant valvular abnormalities.
Noted mildly elevated pro CHF BNP at equivocal level
Repeated echocardiogram with preserved biventricular function no significant valvular abnormalities
Chest x-ray with clear lung brady.
Not on diuretics at home.
Given stable respiratory status, hold further Lasix. .
Non-ND troponin elevation in the patient with chronic kidney disease.
Does not report chest pain upon presentation.
ECG with no ischemic
Echocardiogram with preserved ventricular function and no regional wall motion abnormalities.
Essential hypertension.
Continue amlodipine
Chronic kidney disease with baseline creatinine 1.7�2. Suspect CKD stage IIIa�B.
Most recent renal ultrasound suggestive of medical renal disease
Urinalysis pending for sediment.
Monitor renal function
Will need outpatient nephrology follow-up
Factor V Leiden with prior history of preoperative DVT/PE.
Continue anticoagulation/Eliquis at prophylactic dose 2.5 mg twice daily with caution for worsening of left lower extremity hematoma
Hypothyroidism on replacement
Updated TSH pending
History of asthma/COPD.
Obstructive sleep apnea not compliant with CPAP for over 5 years.
Patient is on steroid maintenance prednisone 10 mg daily and Breo Ellipta
Suspect ambulatory dysfunction, multifactorial.
Physical therapy evaluation/discharge planning
Anticipated Discharge: Within 24 hours
Subjective/Interval History
-
Date of Service: December 01, 2023
Objective Data
-
Labs:
Laboratory Results
12/01/23
14:19
WBC 10.7
Hgb 13.0
Hct 40.2
Plt Count 213
Sodium 138
Potassium 4.5 D
Chloride 102
Carbon Dioxide 25
BUN 40 H
Creatinine 1.4 H
Glucose 170 H
Calcium 9.9
Vital Signs:
Vital Signs
Temp Pulse Resp BP Pulse Ox
98.3 F 84 16 135/71 95
12/01/23 15:27 12/01/23 15:27 12/01/23 15:27 12/01/23 15:27 12/01/23 15:27
I&O
11/30/23 12/01/23 12/02/23
06:59 06:59 06:59
Intake Total 480 / 480 1080 / 1080
Output Total 900 / 900
Balance 480 / 480 180 / 180
Physical Exam
-
General: Well Developed and No Apparent Distress
HEENT: Normocephalic, Atraumatic and Moist Mucous Membranes
Respiratory: Clear to Auscultation
Cardiac: Regular Rhythm and S1/S2; Negative Murmur, Rub or Gallop
GI: Soft, Nontender, Nondistended and Normal Bowel Sounds; Negative Organomegaly
Rectal: Deferred by Provider
Musculoskeletal: No Clubbing, No Cyanosis and Other (Bilateral +1 pitting edema. Left lower extremity calf erythema with induration with no fluctuance. Full range of motion at the ankle)
Skin: Negative Rash
Neuro: Nonfocal/Grossly Intact
[2023-12-02 03:30] VITALS: BP 160/73
[2023-12-02] MEDS: SYNTHROID 100 MCG PO (05:07)
[2023-12-02 06:00] VITALS: BMI 31.8
[2023-12-02 07:55] VITALS: BP 141/70
[2023-12-02] MEDS: NORVASC 2.5 MG PO (08:25)
[2023-12-02] MEDS: DELTASONE 10 MG PO (08:25)
[2023-12-02] MEDS: ELIQUIS 2.5 MG PO (08:25)
[2023-12-02] MEDS: ZYRTEC 10 MG PO (08:26)
[2023-12-02] MEDS: CRESTOR 10 MG PO (08:38)
[2023-12-02 11:14] VITALS: BP 157/70
[2023-12-02] MEDS: SYMBICORT 160/4.5 MCG INHALER 2 PUFF INH (13:19)
--- NOTE | 2023-12-02 13:43 | CM ---
Pt for dc to [facility] today.
4p fruit or nut picker
Report; [phone].
--- NOTE | 2023-12-02 14:12 | W.DCSUMMARY ---
Discharge Summary
Discharge Data
Date of Admission: 11/29/23
Date of Discharge: 12/02/23
-
Pending Results: No
Hospital Course
88 years old female presented to the emergency department with worsening bilateral lower extremity swelling. Patient reported the swelling started initially in the right lower extremity for a few weeks following an injury with bruising to that
extremity. She did not have fever or chills. No shortness of breath. No hypoxia. Chest radiography showed low lung volumes with no focal airspace disease. Pro-BNP 643. She had mild elevated white count. Ultrasound did not show evidence of
deep venous thrombosis in the lower extremity. Initially she was given antibiotic for possible cellulitis but later she was diagnosed with noninfective hematoma and antibiotic was stopped. Bilateral lower extremity thought to be chronic and
component of possible lymphedema. There was no clinical evidence of decompensated heart failure. She had mild elevation in troponin and that was thought to be non--NC troponin elevation in the setting of chronic kidney disease. Creatinine upon
discharge was 1.4. Echocardiogram showed preserved biventricular function with no significant valvular abnormalities. Patient was maintained on Eliquis with hemoglobin 13.0 upon discharge. Patient was evaluated by physical therapy and recommended
retirement facility. Patient remained hemodynamically stable and was discharged in a stable condition.
Discharge Plan
-
Patient Disposition: Long Term/SNF
Discharge Diagnosis/Procedures: Impression:
Left lower extremity superficial hematoma with cellulitis
Non-NC troponin elevation
Hypokalemia
Conditions prior to admission:*
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
Obstructive sleep apnea not on CPAP.
Essential hypertension
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
CAD.
Hypothyroidism
Diet: Regular
Referrals:
Lauri Chavez MD [Family Provider] -
Prescriptions:
Continued
prednisone 10 mg Tablet
10 mg PO DAILY
amlodipine [Norvasc] 5 mg Tablet
2.5 mg PO DAILY
rosuvastatin [Crestor] 40 mg Tablet
40 mg PO DAILY
Eliquis 2.5 mg Tablet
2.5 mg PO BID
fluticasone furoate-vilanterol [Breo Ellipta] 200-25 mcg/dose Blister With Device
1 inh INHALATION R DAILYPRN PRN (Reason: sob)
acetaminophen [Tylenol Extra Strength] 500 MG tablet
1,000 mg PO TIDPRN PRN (Reason: mild pain) Qty: 100 0RF
cetirizine 10 MG tablet
10 mg PO DAILY Qty: 90 0RF
levothyroxine 100 MCG tablet
100 mcg PO DAILY Qty: 90 0RF
Discharge Orders:
Discharge Patient (As Directed); Ordered 12/02/23
Ordered By: Eugenio Hoff
Discharge Date and Time
Print Language: ROMANSH
--- NOTE | 2023-12-02 14:20 | W.PN.HOSP.TC ---
Today's Communication/Plan
-
dc
Assessment / Plan
Assessment / Plan
Impression:
Left lower extremity superficial hematoma with cellulitis
Non-AR troponin elevation
Hypokalemia
Conditions prior to admission:*
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
Obstructive sleep apnea not on CPAP.
Essential hypertension
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
CAD.
Hypothyroidism
Plan:
Presentation with left lower extremity hematoma and cellulitis.
Patient reports possibly bumping her leg against furniture, although could not recall details.
Denies any fever or chills and has no systemic symptoms.
Noted with mild elevated white count.
Exam with left calf erythema and induration midway with full range of motion in the ankle
No fluctuance
Lower extremity Doppler negative for DVT.
Cellulitis improved with now hematoma reduced in size.
Stopped antibiotics
Bilateral peripheral edema, chronic likely with component of lymphedema
No clinical evidence of decompensated CHF
Patient with prior history of CAD and stent at least 15 years ago
Most recent echocardiogram March 2023 with preserved biventricular function and no significant valvular abnormalities.
Noted mildly elevated pro CHF BNP at equivocal level
Repeated echocardiogram with preserved biventricular function no significant valvular abnormalities
Chest x-ray with clear lung brady.
Not on diuretics at home.
Given stable respiratory status, hold further Lasix. .
Non-AR troponin elevation in the patient with chronic kidney disease.
Does not report chest pain upon presentation.
ECG with no ischemic
Echocardiogram with preserved ventricular function and no regional wall motion abnormalities.
Essential hypertension.
Continue amlodipine
Chronic kidney disease with baseline creatinine 1.7�2. Suspect CKD stage IIIa�B.
Most recent renal ultrasound suggestive of medical renal disease
Urinalysis pending for sediment.
Monitor renal function
Will need outpatient nephrology follow-up
Factor V Leiden with prior history of preoperative DVT/PE.
Continue anticoagulation/Eliquis at prophylactic dose 2.5 mg twice daily with caution for worsening of left lower extremity hematoma
Hypothyroidism on replacement
Updated TSH pending
History of asthma/COPD.
Obstructive sleep apnea not compliant with CPAP for over 5 years.
Patient is on steroid maintenance prednisone 10 mg daily and Breo Ellipta
Suspect ambulatory dysfunction, multifactorial.
Physical therapy evaluation/discharge planning
Total discharge time spent to see the patient, examine the patient on the floor, review data and lab results, discuss the discharge plan with the patient, pillowcase folder and nursing staff around 65 minutes
Anticipated Discharge: Today
Subjective/Interval History
-
Date of Service: December 02, 2023
Doing well
No chest pain
N sob
Wants to go to [facility]
Objective Data
-
Vital Signs:
Vital Signs
Temp Pulse Resp BP Pulse Ox
97.3 F 72 16 157/70 94
12/02/23 11:14 12/02/23 11:14 12/02/23 11:14 12/02/23 11:14 12/02/23 11:14
I&O
12/01/23 12/02/23 12/03/23
06:59 06:59 06:59
Intake Total 1080 / 1080 600 / 600 200 / 200
Output Total 900 / 900 300 / 300 400 / 400
Balance 180 / 180 300 / 300 -200 / -200
[2023-12-02 15:00] VITALS: BP 156/75
== END 2023-12-02 16:22 | DRG 605 ==
LOC: 3 WEST ACU 09:39
PROVIDERS: Internal Medicine; ADMITTING PHYSICIAN Internal Medicine; ATTENDING PHYSICIAN Internal Medicine; EMERGENCY PHYSICIAN Student in an Organized Health Care Education/Training Program; FAMILY PHYSICIAN Internal Medicine Geriatric Medicine
DX: S80.12XA Contusion of left lower leg, initial encounter (principal); L03.116 Cellulitis of left lower limb; I5A Non-ischemic myocardial injury (non-traumatic); I13.0 Hypertensive heart and chronic kidney disease with heart failure and stage 1 through stage 4 chronic kidney disease, or unspecified chronic kidney disease; W22.8XXA Striking against or struck by other objects, initial encounter; N18.31 Chronic kidney disease, stage 3a; E87.6 Hypokalemia; E03.9 Hypothyroidism, unspecified; G47.33 Obstructive sleep apnea (adult) (pediatric); J44.89 Other specified chronic obstructive pulmonary disease; Z79.01 Long term (current) use of anticoagulants; Z86.718 Personal history of other venous thrombosis and embolism; Z86.711 Personal history of pulmonary embolism
CPT/HCPCS: 71046; 80048; 80053; 80076; 81003; 81015; 82570; 83880; 84156; 84439; 84443; 84484; 85025; 85610; 85730; 87070; 93005; 93306; 93970; 94640; 96374; 97163; 97530; 99285

== ENCOUNTER → 2024-01-12 11:16 | Outpatient (REF) | payer MEDICARE, SELFPAY ==
[2024-01-12 12:39] LABS: % Basophils 0.5 % (0-2); % Eosinophils 4.2 % (0-6); % Immature Granulocytes 1.2 % (0-0.5); % Lymphocytes 22.2 % (20.5-51.1); % Monocytes 14.6 % (1.7-9.3); % Neutrophils 57.3 % (42.2-75.2); Absolute Eosinophils 0.4 10^3/uL (0-0.7); Absolute Immature Granulocytes 0.1 10^3/uL (0-0.05); Absolute Lymphocytes 1.9 10^3/uL (1.2-3.4); Absolute Monocytes 1.2 10^3/uL (0.1-0.6); Absolute Neutrophils 4.8 10^3/uL (1.4-6.5); Hematocrit 36.8 % (37.0-47.0); Hemoglobin 11.8 g/dL (12.0-16.0); Mean Corp Hgb Conc. 32.1 g/dL (33.0-37.0); Mean Corpuscular Hgb 29.3 pg (27.0-31.0); Mean Corpuscular Volume 91.3 fL (81.0-99.0); Mean Platelet Volume 10.5 fL (7.4-10.4); Nucleated Red Blood Cells % 0 %; Platelet Count 207 10^3/uL (130-400); Red Blood Cell Count 4.03 10^6/uL (4.20-5.40); Red Cell Dist. Width 14.9 % (11.5-14.5); White Blood Cell Count 8.4 10^3/uL (4.8-10.8)
[2024-01-12 12:56] LABS: ALT (SGPT) 18 U/L (0-35); AST (SGOT) 23 U/L (14-36); Albumin 3.2 g/dl (3.5-5.0); Alkaline Phosphatase 45 U/L (38-126); Blood Urea Nitrogen 34 mg/dl (7-17); Calcium 9.5 mg/dl (8.4-10.2); Carbon Dioxide 25 mmol/L (22-30); Chloride 111 mmol/L (98-107); Glucose 103 mg/dl (70-99); HDL Cholesterol 101 mg/dl; LDL Cholesterol, Calculated 55 mg/dl; Potassium 3.3 mmol/L (3.5-5.1); Sodium 145 mmol/L (135-145); Total Bilirubin 0.9 mg/dl (0.2-1.3); Total Cholesterol 173 mg/dl (50-199); Total Protein 5.4 g/dl (6.3-8.2); Triglyceride 87 mg/dl (10-149); Very Low Density Lipoprotein 17 mg/dl (0-30); eGFR 25.24
[2024-01-12 13:03] LABS: Glycohemoglobin (HgbA1c) 6.1 % (4.0-5.6)
[2024-01-12 13:06] LABS: NT-proBNP 828 pg/ml
== END ==
LOC: OLABPV 11:16
PROVIDERS: ATTENDING PHYSICIAN Internal Medicine Geriatric Medicine
DX: N18.32 Chronic kidney disease, stage 3b (principal); I10 Essential (primary) hypertension; M54.2 Cervicalgia; I95.1 Orthostatic hypotension; R42 Dizziness and giddiness; Z79.01 Long term (current) use of anticoagulants; I26.99 Other pulmonary embolism without acute cor pulmonale; E78.2 Mixed hyperlipidemia; R53.82 Chronic fatigue, unspecified; Z13.89 Encounter for screening for other disorder; G47.33 Obstructive sleep apnea (adult) (pediatric); D64.9 Anemia, unspecified; R79.89 Other specified abnormal findings of blood chemistry; M25.562 Pain in left knee; S16.1XXA Strain of muscle, fascia and tendon at neck level, initial encounter; M76.32 Iliotibial band syndrome, left leg
CPT/HCPCS: 36415; 80053; 80061; 83036; 83880; 85025

== ENCOUNTER → 2024-01-24 15:15 | Outpatient (REF) | payer MEDICARE, SELFPAY | LOC: RAD 15:15 | PROVIDERS: ATTENDING PHYSICIAN Psychiatry & Neurology Neurology; FAMILY PHYSICIAN Internal Medicine Geriatric Medicine | DX: M53.3 Sacrococcygeal disorders, not elsewhere classified (principal) | CPT/HCPCS: 72202 ==

== ENCOUNTER 2024-02-26 11:03 | Emergency (ER) | payer MEDICARE, SELFPAY ==
[2024-02-26 11:07] VITALS: BMI 30.1
[2024-02-26 11:08] VITALS: BP 175/81
--- NOTE | 2024-02-26 11:27 | ED.GENMED ---
History of Present Illness
General
Chief Complaint: Vaginal Bleeding
Time Seen by Provider: 02/26/24 11:27
History of Present Illness
History of Present Illness:
TIME OF INITIAL ENCOUNTER: 11:30 AM
HPI: Over the last 4 days, the patient been having intermittent vaginal bleeding. She states it is not rectal bleeding. She is on Eliquis 2.5 mg twice daily. She has no significant pain. She has chronic vertigo for the past 4 years.
EXAM:
GENERAL: Appears somewhat generally weak and debilitated, elevated BMI
HEENT: Moist oral mucosa
ABDOMEN: Soft with no peritoneal signs, no tenderness
: With ELLEN Montoya in the room, visualization of the external genitalia showed a moderate amount of blood at the vaginal introitus extending to the vulvar region
NEUROLOGIC: Good strength all extremities, no coordination deficits
PSYCHIATRIC: Appropriate mental status, normal insight and judgement
BACK: Decreased active range of motion due to chronic pain
EXTREMITIES: Nontender, no edema, moves all extremities equally
SKIN: No rash, no lesions
NUMBER AND COMPLEXITY OF PROBLEMS ADDRESSED AT THE ENCOUNTER
� Chronic conditions affecting care: Has had PE, is on Eliquis, stress urinary incontinence, history of factor V Leiden, history of alcohol abuse, DVT
� Acute Exacerbation and/or Progression of Chronic Illness: This is an acute problem
� Differential Diagnosis includes: Uterine fibroids, uterine malignancy, vaginal irritation/abrasion
AMOUNT AND/OR COMPLEXITY OF DATA TO BE REVIEWED AND ANALYZED
� I performed an independent evaluation of and my interpretation is:
EKG:
CT:
X-rays:
Laboratory Studies: White count is 13.4, hemoglobin 14.0, creatinine is 1.8 which is near baseline.
Other: Ultrasound imaging personally reviewed and I agree with radiologist interpretation
� Review of other/old records: I reviewed records. The patient was admitted here in November with lower extremity edema and ultrasound at that time showed no DVT. Hemoglobin was 13.0 at discharge.
� Clinical information was obtained by an independent historian: Notes from [facility]
� Prescriptions/Medications Considered but not given:
� Further testing considered but not performed:
RISK OF COMPLICATIONS AND/OR MORBIDITY OR MORTALITY OF PATIENT MANAGEMENT
� Social determinants of health affecting care: Resides at [facility]
� Discussion with other providers: Notified Dr. Ochoa and agrees with close outpatient follow-up.
� Escalation of care including admission/observation vs risk of discharge considered: Ultrasound imaging obtained and her hemoglobin is normal. Renal function is at baseline.
ANY OTHER UPDATES:
3:35 PM: The patient's blood pressure remains elevated (patient states it was 120 before the ambulance came). We did give dose of amlodipine 5 mg today.
Past History
Past History
ED Past Medical History: Asthma, CAD, HTN, Hypercholesterolemia, Hypothyroidism and Other (Factor V Leiden deficiency, PE, gout, chronic sinusitis, Vertigo, IBS)
ED Past Surgical History: Cardiac (Stent X 1), Gynecological (Ovarian cyst), Orthopedic (Back surgery) and Other (hemorrhoidectomy)
Social History
Tobacco: Non-smoker
Alcohol: Former
Drug: None
Personal:
Living: with family
Phy Exam
Physical Exam
Physical Exam:
See HPI
Course
Orders/Labs/Results
Orders:
Orders
02/26/24 11:14
Complete Blood Count/With Diff Urgent
Comprehensive Metabolic Panel Urgent
Protime/PTT Urgent
02/26/24 11:36
0.9% Sodium Chloride 1000 ml [Nss] 1,000 ml IV BOLUS
US Pelvis Only (non-obstetric) Urgent
Comment:
Reason For Exam: vaginal bleeding
02/26/24 15:37
Amlodipine [Norvasc] 5 mg PO NOW STA
Abnormal Lab Results
02/26/24
11:14
WBC 13.4 H 10^3/uL
(4.8-10.8)
MCHC 31.4 L g/dL
(33.0-37.0)
RDW 15.6 H %
(11.5-14.5)
Abs Immat Gran (auto) 0.2 H 10^3/uL
(0-0.05)
Absolute Neuts (auto) 11.1 H 10^3/uL
(1.4-6.5)
Absolute Lymphs (auto) 1.0 L 10^3/uL
(1.2-3.4)
Absolute Monos (auto) 1.0 H 10^3/uL
(0.1-0.6)
Immature Gran % 1.3 H %
(0-0.5)
Neutrophils % 83.3 H %
(42.2-75.2)
Lymphocytes % 7.6 L %
(20.5-51.1)
Chloride 108 H mmol/L
(98-107)
BUN 31 H mg/dl
(7-17)
Creatinine 1.8 H mg/dL
(0.6-1.0)
Glucose 133 H mg/dl
(70-99)
Total Bilirubin 1.5 H mg/dl
(0.2-1.3)
Total Protein 6.2 L g/dl
(6.3-8.2)
02/26/24 11:14
02/26/24 11:14
Vital Signs
Initial and Last Documented VS:
Initial Vital Signs
Temp Pulse Resp Pulse Ox
36.3 C 69 20 94
02/26/24 11:07 02/26/24 11:07 02/26/24 11:07 02/26/24 11:07
Last Documented Vital Signs
Temp Pulse Resp BP Pulse Ox
36.3 C 72 20 175/81 94
02/26/24 11:07 02/26/24 11:08 02/26/24 11:08 02/26/24 11:08 02/26/24 11:08
*Critical Care Note
Total Time (30-74mins, 75-104mins- exclusive of procedures): Not Applicable
ED Attending Note
-
Portions of this chart may have been created with voice recognition software.� Occasional wrong word or��sound alike� substitutions may have occurred due to the inherent limitations of voice recognition software.
Discharge Plan
Departure
Patient Disposition: Home (Routine Discharge)
Date of Disposition: 02/26/24
Time of Disposition: 15:53
Patient with high blood pressure during this ER visit?: Yes
Discharge Problem:
Abnormal vaginal bleeding
Prescriptions:
No Action
prednisone 10 mg Tablet
10 mg PO DAILY
amlodipine [Norvasc] 5 mg Tablet
2.5 mg PO DAILY
rosuvastatin [Crestor] 40 mg Tablet
40 mg PO DAILY
Eliquis 2.5 mg Tablet
2.5 mg PO BID
fluticasone furoate-vilanterol [Breo Ellipta] 200-25 mcg/dose Blister With Device
1 inh INHALATION R DAILYPRN PRN (Reason: sob)
acetaminophen [Tylenol Extra Strength] 500 MG tablet
1,000 mg PO TIDPRN PRN (Reason: mild pain) Qty: 100 0RF
cetirizine 10 MG tablet
10 mg PO DAILY Qty: 90 0RF
levothyroxine 100 MCG tablet
100 mcg PO DAILY Qty: 90 0RF
Referrals:
Brittany Ochoa, DO [Active] - Follow up in 2-3 days
Lauri Chavez MD [Family Provider] -
Activity Restrictions/Additional Instructions:
I notified Dr. Ochoa, the tuckpointer. Please call her office to arrange follow-up. I recommend that you not take the Eliquis tonight and not take it in the morning and then resume the Eliquis. The hemoglobin level is improved compared to
prior. The ultrasound did not show anything definitively abnormal but the tuckpointer recommends an endometrial biopsy�please call their office.
Interventions
Interventions:
*Risk Screen - Suicide Last Done: 02/26/24 11:07
*General Assessment Last Done: 02/26/24 11:07
*Neglect/Abuse Screening Last Done: 02/26/24 11:07
ED- Fall Risk Assessment Last Done: 02/26/24 11:07
*ED COVID-19 Vaccine History Last Done: 02/26/24 11:07
ED-Female Genitourinary Assessment Last Done: 02/26/24 11:07
Discharge Date and Time
Print Language: [place]
[2024-02-26 11:47] LABS: INR 1.09; PT 14.4 Sec (11.4-14.6)
[2024-02-26 11:48] LABS: % Basophils 0.1 % (0-2); % Eosinophils 0.4 % (0-6); % Immature Granulocytes 1.3 % (0-0.5); % Lymphocytes 7.6 % (20.5-51.1); % Monocytes 7.3 % (1.7-9.3); % Neutrophils 83.3 % (42.2-75.2); APTT 23.5 Sec (23.4-35.0); Absolute Eosinophils 0.1 10^3/uL (0-0.7); Absolute Immature Granulocytes 0.2 10^3/uL (0-0.05); Absolute Neutrophils 11.1 10^3/uL (1.4-6.5); Hematocrit 44.6 % (37.0-47.0); Mean Corp Hgb Conc. 31.4 g/dL (33.0-37.0); Mean Corpuscular Hgb 29.4 pg (27.0-31.0); Mean Corpuscular Volume 93.5 fL (81.0-99.0); Mean Platelet Volume 10.4 fL (7.4-10.4); Nucleated Red Blood Cells % 0 %; Platelet Count 202 10^3/uL (130-400); Red Blood Cell Count 4.77 10^6/uL (4.20-5.40); Red Cell Dist. Width 15.6 % (11.5-14.5); White Blood Cell Count 13.4 10^3/uL (4.8-10.8)
[2024-02-26 11:50] LABS: ALT (SGPT) 23 U/L (0-35); AST (SGOT) 28 U/L (14-36); Albumin 3.9 g/dl (3.5-5.0); Alkaline Phosphatase 38 U/L (38-126); Blood Urea Nitrogen 31 mg/dl (7-17); Calcium 9.8 mg/dl (8.4-10.2); Carbon Dioxide 25 mmol/L (22-30); Chloride 108 mmol/L (98-107); Estimated Creatinine Clearance 22 ml/min; Glucose 133 mg/dl (70-99); Potassium 3.6 mmol/L (3.5-5.1); Sodium 144 mmol/L (135-145); Total Bilirubin 1.5 mg/dl (0.2-1.3); Total Protein 6.2 g/dl (6.3-8.2); eGFR 26.93
[2024-02-26] MEDS: NSS 1000 IV (11:50)
[2024-02-26 12:00] VITALS: BP 177/82
[2024-02-26 13:00] VITALS: BP 189/84
[2024-02-26 14:00] VITALS: BP 208/91
[2024-02-26 15:21] VITALS: BP 214/76
[2024-02-26 16:00] VITALS: BP 185/90
[2024-02-26] MEDS: NORVASC 5 MG PO (16:01)
== END 2024-02-26 16:38 | disposition home or self-care (01) ==
LOC: EMR 11:03
PROVIDERS: EMERGENCY PHYSICIAN Emergency Medicine; FAMILY PHYSICIAN Internal Medicine Geriatric Medicine
DX: N93.9 Abnormal uterine and vaginal bleeding, unspecified (principal); I10 Essential (primary) hypertension; Z79.01 Long term (current) use of anticoagulants
CPT/HCPCS: 99284; 96360; 76856; 80053; 85025; 85610; 85730

== ENCOUNTER → 2024-03-13 11:24 | Outpatient (REF) | payer MEDICARE, SELFPAY ==
[2024-03-13 12:27] LABS: % Basophils 0.2 % (0-2); % Eosinophils 1.3 % (0-6); % Immature Granulocytes 1.5 % (0-0.5); % Lymphocytes 22.8 % (20.5-51.1); % Monocytes 11.2 % (1.7-9.3); Absolute Eosinophils 0.1 10^3/uL (0-0.7); Absolute Immature Granulocytes 0.1 10^3/uL (0-0.05); Absolute Lymphocytes 1.9 10^3/uL (1.2-3.4); Absolute Monocytes 0.9 10^3/uL (0.1-0.6); Absolute Neutrophils 5.3 10^3/uL (1.4-6.5); Hematocrit 39.8 % (37.0-47.0); Hemoglobin 12.4 g/dL (12.0-16.0); Mean Corp Hgb Conc. 31.2 g/dL (33.0-37.0); Mean Corpuscular Hgb 29.6 pg (27.0-31.0); Mean Platelet Volume 10.9 fL (7.4-10.4); Nucleated Red Blood Cells % 0 %; Platelet Count 167 10^3/uL (130-400); Red Blood Cell Count 4.19 10^6/uL (4.20-5.40); Red Cell Dist. Width 16.3 % (11.5-14.5); White Blood Cell Count 8.4 10^3/uL (4.8-10.8)
[2024-03-13 12:44] LABS: ALT (SGPT) 39 U/L (0-35); AST (SGOT) 39 U/L (14-36); Alkaline Phosphatase 41 U/L (38-126); Blood Urea Nitrogen 35 mg/dl (7-17); Calcium 9.2 mg/dl (8.4-10.2); Carbon Dioxide 30 mmol/L (22-30); Chloride 107 mmol/L (98-107); Glucose 101 mg/dl (70-99); HDL Cholesterol 79 mg/dl; LDL Cholesterol, Calculated 62 mg/dl; Potassium 3.6 mmol/L (3.5-5.1); Sodium 140 mmol/L (135-145); Total Bilirubin 1.2 mg/dl (0.2-1.3); Total Cholesterol 157 mg/dl (50-199); Triglyceride 82 mg/dl (10-149); Very Low Density Lipoprotein 16 mg/dl (0-30); eGFR 36.41
== END ==
LOC: OLABPV 11:24
PROVIDERS: ATTENDING PHYSICIAN Internal Medicine Geriatric Medicine
DX: Z01.818 Encounter for other preprocedural examination (principal); I10 Essential (primary) hypertension; N18.32 Chronic kidney disease, stage 3b; I95.1 Orthostatic hypotension; R42 Dizziness and giddiness; Z79.01 Long term (current) use of anticoagulants; I26.99 Other pulmonary embolism without acute cor pulmonale; E78.2 Mixed hyperlipidemia; R53.82 Chronic fatigue, unspecified; G47.33 Obstructive sleep apnea (adult) (pediatric); Z13.89 Encounter for screening for other disorder; D64.9 Anemia, unspecified; R79.89 Other specified abnormal findings of blood chemistry; M25.562 Pain in left knee; M76.32 Iliotibial band syndrome, left leg; R60.0 Localized edema
CPT/HCPCS: 36415; 80053; 80061; 85025

== ENCOUNTER → 2024-04-05 11:47 | Outpatient (REF) | payer MEDICARE, SELFPAY ==
[2024-04-05 14:36] LABS: Vitamin D, 25-OH*** 15.4 ng/mL (30-80)
[2024-04-05 15:26] LABS: Folate 6.1 ng/ml (2.76-20); Vitamin B12 383 pg/ml (239-931)
[2024-04-08 02:43] LABS: ANA, IgG Reflex to HEp-2 None Detected (None Detected)
== END ==
LOC: OLABPV 11:47
PROVIDERS: ATTENDING PHYSICIAN Internal Medicine Geriatric Medicine
DX: I10 Essential (primary) hypertension (principal); E55.9 Vitamin D deficiency, unspecified; R42 Dizziness and giddiness; E53.8 Deficiency of other specified B group vitamins
CPT/HCPCS: 36415; 82306; 82607; 82746; 86038; 86618

== ENCOUNTER 2024-04-09 06:52 | Day surgery (SDC) | payer MEDICARE, SELFPAY ==
--- NOTE | 2024-04-08 11:25 | PTCARENOTE ---
K+ 3.4, Lara at Dr. Ochoa's office made aware.
--- NOTE | 2024-04-08 12:46 | PTCARENOTE ---
Abn ECG, Tracing difficult to obtain, Dr. Chua aware, no new actions requested.
[2024-04-09] VITALS (9 sets, daily range): BP systolic 152–172; BP diastolic 59–75; BMI 28.4
[2024-04-09] MEDS: HEPARIN 5000 UNITS SC (08:54)
[2024-04-09] MEDS: TYLENOL 1000 MG PO (08:54)
== END 2024-04-09 13:32 ==
LOC: SDS 06:52
PROVIDERS: ATTENDING PHYSICIAN Obstetrics & Gynecology
DX: N95.0 Postmenopausal bleeding (principal); N81.6 Rectocele; N36.2 Urethral caruncle; D26.0 Other benign neoplasm of cervix uteri
CPT/HCPCS: 58558; 88305

== ENCOUNTER → 2024-04-15 11:55 | Outpatient (REF) | payer OTHER, MEDICARE, SELFPAY ==
[2024-04-15 12:20] LABS: ALT (SGPT) 32 U/L (0-35); AST (SGOT) 43 U/L (14-36); Albumin 2.7 g/dl (3.5-5.0); Alkaline Phosphatase 54 U/L (38-126); Blood Urea Nitrogen 27 mg/dl (7-17); Calcium 8.4 mg/dl (8.4-10.2); Carbon Dioxide 27 mmol/L (22-30); Chloride 103 mmol/L (98-107); Glucose 101 mg/dl (70-99); Potassium 3.3 mmol/L (3.5-5.1); Sodium 136 mmol/L (135-145); Total Bilirubin 1.3 mg/dl (0.2-1.3); Total Protein 4.9 g/dl (6.3-8.2); eGFR 36.41
[2024-04-15 12:22] LABS: % Basophils 0.2 % (0-2); % Eosinophils 1.3 % (0-6); % Immature Granulocytes 1.3 % (0-0.5); % Lymphocytes 11.2 % (20.5-51.1); Absolute Eosinophils 0.1 10^3/uL (0-0.7); Absolute Immature Granulocytes 0.1 10^3/uL (0-0.05); Absolute Monocytes 1.1 10^3/uL (0.1-0.6); Absolute Neutrophils 6.8 10^3/uL (1.4-6.5); Hematocrit 39.8 % (37.0-47.0); Hemoglobin 12.3 g/dL (12.0-16.0); Mean Corp Hgb Conc. 30.9 g/dL (33.0-37.0); Mean Corpuscular Hgb 29.8 pg (27.0-31.0); Mean Corpuscular Volume 96.4 fL (81.0-99.0); Mean Platelet Volume 11.4 fL (7.4-10.4); Nucleated Red Blood Cells % 0 %; Platelet Count 133 10^3/uL (130-400); Red Blood Cell Count 4.13 10^6/uL (4.20-5.40); Red Cell Dist. Width 16.5 % (11.5-14.5); White Blood Cell Count 9.2 10^3/uL (4.8-10.8)
== END ==
LOC: OLABP 11:55
PROVIDERS: ATTENDING PHYSICIAN Family Medicine
DX: I10 Essential (primary) hypertension (principal); N18.32 Chronic kidney disease, stage 3b; D64.9 Anemia, unspecified; Z79.01 Long term (current) use of anticoagulants; I26.99 Other pulmonary embolism without acute cor pulmonale; I95.1 Orthostatic hypotension; M62.59 Muscle wasting and atrophy, not elsewhere classified, multiple sites
CPT/HCPCS: 36415; 80053; 85025

== ENCOUNTER → 2024-04-17 10:12 | Outpatient (REF) | payer OTHER, MEDICARE, SELFPAY ==
[2024-04-17 11:27] LABS: Blood Urea Nitrogen 27 mg/dl (7-17); Calcium 8.8 mg/dl (8.4-10.2); Carbon Dioxide 27 mmol/L (22-30); Chloride 105 mmol/L (98-107); Glucose 91 mg/dl (70-99); Potassium 4.1 mmol/L (3.5-5.1); Sodium 136 mmol/L (135-145); eGFR 36.41
== END ==
LOC: OLABP 10:12
PROVIDERS: ATTENDING PHYSICIAN Family Medicine
DX: I10 Essential (primary) hypertension (principal); N18.32 Chronic kidney disease, stage 3b; D64.9 Anemia, unspecified; Z79.01 Long term (current) use of anticoagulants; I26.99 Other pulmonary embolism without acute cor pulmonale; I95.1 Orthostatic hypotension; M62.59 Muscle wasting and atrophy, not elsewhere classified, multiple sites
CPT/HCPCS: 36415; 80048

== ENCOUNTER → 2024-04-26 11:21 | Outpatient (REF) | payer OTHER, MEDICARE, SELFPAY ==
[2024-04-26 12:24] LABS: Urine Albumin 4+ (Neg - Trace); Urine Bilirubin Negative (Negative); Urine Character Cloudy (Clear); Urine Color Yellow; Urine Glucose Negative (Negative); Urine Ketone Negative (Negative); Urine Leukocyte 3+ (Negative); Urine Nitrite Positive (Negative); Urine Occult Blood 4+ (Negative); Urine Specific Gravity 1.025 (<1.030); Urine Urobilinogen Negative (Neg - 1+)
[2024-04-26 12:49] LABS: Urine Squamous Cell 0-2 /LPF (Few)
[2024-04-26 12:50] LABS: Urine Bacteria Moderate (Negative); Urine Red Blood Cell 0-2 /HPF (0-2); Urine White Cell 90-100 /HPF (0-5)
== END ==
LOC: OLABP 11:21
PROVIDERS: ATTENDING PHYSICIAN Family Medicine
DX: I10 Essential (primary) hypertension (principal); N18.32 Chronic kidney disease, stage 3b; D64.9 Anemia, unspecified; Z79.01 Long term (current) use of anticoagulants; I26.99 Other pulmonary embolism without acute cor pulmonale; I95.1 Orthostatic hypotension; M62.59 Muscle wasting and atrophy, not elsewhere classified, multiple sites; N39.0 Urinary tract infection, site not specified
CPT/HCPCS: 81003; 81015; 87077; 87086

== ENCOUNTER → 2024-05-01 11:45 | Outpatient (REF) | payer OTHER, MEDICARE, SELFPAY ==
[2024-05-01 12:26] LABS: % Basophils 0.3 % (0-2); % Eosinophils 0.7 % (0-6); % Immature Granulocytes 0.9 % (0-0.5); % Lymphocytes 19.4 % (20.5-51.1); % Neutrophils 67.7 % (42.2-75.2); Absolute Eosinophils 0.1 10^3/uL (0-0.7); Absolute Immature Granulocytes 0.1 10^3/uL (0-0.05); Absolute Lymphocytes 1.8 10^3/uL (1.2-3.4); Absolute Neutrophils 6.2 10^3/uL (1.4-6.5); Hematocrit 37.1 % (37.0-47.0); Hemoglobin 11.9 g/dL (12.0-16.0); Mean Corp Hgb Conc. 32.1 g/dL (33.0-37.0); Mean Corpuscular Hgb 30.1 pg (27.0-31.0); Mean Corpuscular Volume 93.9 fL (81.0-99.0); Mean Platelet Volume 11.4 fL (7.4-10.4); Nucleated Red Blood Cells % 0 %; Platelet Count 189 10^3/uL (130-400); Red Blood Cell Count 3.95 10^6/uL (4.20-5.40); Red Cell Dist. Width 17.9 % (11.5-14.5); White Blood Cell Count 9.2 10^3/uL (4.8-10.8)
[2024-05-01 14:08] LABS: Blood Urea Nitrogen 30 mg/dl (7-17); Calcium 9.3 mg/dl (8.4-10.2); Carbon Dioxide 21 mmol/L (22-30); Chloride 107 mmol/L (98-107); Glucose 92 mg/dl (70-99); Potassium 3.4 mmol/L (3.5-5.1); Sodium 139 mmol/L (135-145); eGFR 33.52
[2024-05-01 14:43] LABS: TSH 7.65 uIU/ml (0.47-4.68)
== END ==
LOC: OLABP 11:45
PROVIDERS: ATTENDING PHYSICIAN Family Medicine
DX: I10 Essential (primary) hypertension (principal); N18.32 Chronic kidney disease, stage 3b; D64.9 Anemia, unspecified; Z79.01 Long term (current) use of anticoagulants; I26.99 Other pulmonary embolism without acute cor pulmonale; I95.1 Orthostatic hypotension; M62.59 Muscle wasting and atrophy, not elsewhere classified, multiple sites
CPT/HCPCS: 36415; 80048; 84443; 85025

== ENCOUNTER → 2024-06-06 11:35 | Outpatient (REF) | payer OTHER, MEDICARE, SELFPAY ==
[2024-06-06 12:33] LABS: Blood Urea Nitrogen 36 mg/dl (7-17); Calcium 9.4 mg/dl (8.4-10.2); Carbon Dioxide 18 mmol/L (22-30); Chloride 103 mmol/L (98-107); Glucose 88 mg/dl (70-99); Potassium 3.1 mmol/L (3.5-5.1); Sodium 135 mmol/L (135-145); eGFR 33.52
[2024-06-06 12:35] LABS: % Basophils 0.1 % (0-2); % Eosinophils 0.1 % (0-6); % Immature Granulocytes 2.4 % (0-0.5); % Lymphocytes 10.6 % (20.5-51.1); % Monocytes 10.9 % (1.7-9.3); % Neutrophils 75.9 % (42.2-75.2); Absolute Immature Granulocytes 0.3 10^3/uL (0-0.05); Absolute Lymphocytes 1.5 10^3/uL (1.2-3.4); Absolute Monocytes 1.5 10^3/uL (0.1-0.6); Absolute Neutrophils 10.4 10^3/uL (1.4-6.5); Hematocrit 27.9 % (37.0-47.0); Mean Corp Hgb Conc. 32.3 g/dL (33.0-37.0); Mean Corpuscular Hgb 30.5 pg (27.0-31.0); Mean Corpuscular Volume 94.6 fL (81.0-99.0); Mean Platelet Volume 12.2 fL (7.4-10.4); Nucleated Red Blood Cells % 0 %; Platelet Count 178 10^3/uL (130-400); Red Blood Cell Count 2.95 10^6/uL (4.20-5.40); Red Cell Dist. Width 18.1 % (11.5-14.5); White Blood Cell Count 13.7 10^3/uL (4.8-10.8)
[2024-06-06 16:57] LABS: Urine Albumin 3+ (Neg - Trace); Urine Bilirubin Negative (Negative); Urine Character Cloudy (Clear); Urine Color Yellow; Urine Glucose Negative (Negative); Urine Ketone Negative (Negative); Urine Leukocyte 3+ (Negative); Urine Nitrite Negative (Negative); Urine Occult Blood 1+ (Negative); Urine Urobilinogen Negative (Neg - 1+)
[2024-06-06 17:09] LABS: Urine Amorphous Seen; Urine Red Blood Cell 0-2 /HPF (0-2); Urine Squamous Cell 0-2 /LPF (Few)
[2024-06-06 17:10] LABS: Urine Bacteria Many (Negative); Urine White Cell 26-30 /HPF (0-5)
== END ==
LOC: OLABP 11:35
PROVIDERS: ATTENDING PHYSICIAN Family Medicine
DX: J30.2 Other seasonal allergic rhinitis (principal); K58.0 Irritable bowel syndrome with diarrhea; K59.00 Constipation, unspecified; D64.9 Anemia, unspecified; Z79.01 Long term (current) use of anticoagulants; I26.99 Other pulmonary embolism without acute cor pulmonale; R53.82 Chronic fatigue, unspecified; R53.1 Weakness
CPT/HCPCS: 36415; 80048; 81003; 81015; 85025; 87077; 87086; 87186

== ENCOUNTER → 2024-06-07 09:50 | Outpatient (REF) | payer OTHER, MEDICARE, SELFPAY ==
[2024-06-07 17:50] LABS: Blood Urea Nitrogen 36 mg/dl (7-17); Calcium 9.3 mg/dl (8.4-10.2); Carbon Dioxide 21 mmol/L (22-30); Chloride 105 mmol/L (98-107); Glucose 82 mg/dl (70-99); Potassium 3.8 mmol/L (3.5-5.1); Sodium 134 mmol/L (135-145); eGFR 31.02
== END ==
LOC: OLABP 09:50
PROVIDERS: ATTENDING PHYSICIAN Family Medicine; FAMILY PHYSICIAN Internal Medicine Geriatric Medicine
DX: I10 Essential (primary) hypertension (principal); N18.32 Chronic kidney disease, stage 3b; D64.9 Anemia, unspecified
CPT/HCPCS: 36415; 80048

== ENCOUNTER → 2024-06-08 08:43 | Outpatient (REF) | payer OTHER, MEDICARE, SELFPAY ==
[2024-06-08 10:21] LABS: Blood Urea Nitrogen 36 mg/dl (7-17); Calcium 9.2 mg/dl (8.4-10.2); Carbon Dioxide 15 mmol/L (22-30); Chloride 104 mmol/L (98-107); Glucose 61 mg/dl (70-99); Potassium 4.4 mmol/L (3.5-5.1); Sodium 134 mmol/L (135-145); eGFR 33.52
== END ==
LOC: OLAB 08:43
PROVIDERS: ATTENDING PHYSICIAN Family Medicine
DX: M62.81 Muscle weakness (generalized) (principal); R42 Dizziness and giddiness
CPT/HCPCS: 36415; 80048

== ENCOUNTER → 2024-06-12 12:10 | Outpatient (REF) | payer OTHER, MEDICARE, SELFPAY ==
[2024-06-12 16:00] LABS: TSH 1.29 uIU/ml (0.47-4.68)
== END ==
LOC: OLABP 12:10
PROVIDERS: ATTENDING PHYSICIAN Family Medicine
DX: J30.2 Other seasonal allergic rhinitis (principal); M62.81 Muscle weakness (generalized); R48.8 Other symbolic dysfunctions; M10.9 Gout, unspecified; R42 Dizziness and giddiness; I10 Essential (primary) hypertension; M62.59 Muscle wasting and atrophy, not elsewhere classified, multiple sites; R26.2 Difficulty in walking, not elsewhere classified; G47.33 Obstructive sleep apnea (adult) (pediatric); R53.82 Chronic fatigue, unspecified; Z79.01 Long term (current) use of anticoagulants; D64.9 Anemia, unspecified
CPT/HCPCS: 36415; 84443